=== PATIENT | male | born 1935 | race Caucasian/White ===

== ENCOUNTER 2019-07-04 00:29 | Inpatient (IN) | payer OTHER ==
[~2019-07-04] VITALS: Ht 182.9 cm; Wt 78.9 kg
[2019-07-04] VITALS (14 sets, daily range): BP systolic 82–154
--- NOTE | 2019-07-04 00:29 | NUR ---
Pt arrives per BLS from home with c/o SOB, cough and congestion progressively worsening over the past 2 days. Non-productive coughing with audible congestion and rhonchi, pallor noted to skin. Per EMS, pt's friend called 911. Pt arrives with SPO2 88-91% RA. Pt has indwelling F/C in place. Dr. Alvarez and RT notified of pt status.
[2019-07-04] MEDS ORDERED: IPRATROPIUM/ALBUTEROL SULFATE 3 ML AMPUL.NEB (DUONEB) INH ONE (00:35)
--- NOTE | 2019-07-04 00:35 | NUR ---
Cici urbina in [facility] - 07/04/19 at 0106 by SDEDAJ RT at bedside.
--- NOTE | 2019-07-04 00:42 | NUR ---
X-ray at bedside.
--- NOTE | 2019-07-04 01:02 | NUR ---
Pt coughing, tachypeic, RR 26, SPO2 83% RA. DuoNeb initiated at this time per RT.
--- NOTE | 2019-07-04 01:10 | NUR ---
# 18 gauge angiocath placed to RFA. Use of asceptic technique. Opsite placed over site. Blood return noted. Blood specimens to include Blood Cx X 2 and Lactic Acid along with MRSA and Influenza collected and sent to lab. Flushed with 10 cc of normal saline. No evidence of infiltration noted. Patient tolerated well.
--- NOTE | 2019-07-04 01:12 | NUR ---
Nasotracheal suction provided by RT, thick white sputum to suction cannister. Improvement to rhonchi and respirations noted post suctioning. Pt tolerated fair.
--- NOTE | 2019-07-04 01:40 | NUR ---
Pt continues to have non-productive cough with RR 26, SPO2 83% on O2 at 2 LPM/NC. Dr. Alvarez called to bedside.
--- NOTE | 2019-07-04 01:45 | NUR ---
Dr. Alvarez at bedside.
[2019-07-04 01:53] LABS: BASOPHILS % (AUTO) 0.3 % (0.0-2.0); EOSINOPHILS % (AUTO) 0.5 % (0.0-4.0); HEMATOCRIT 34.7 % (36-54); HEMOGLOBIN 11.9 g/dL (14.0-18.0); LYMPHOCYTES # (AUTO) 0.9 K/uL (1.0-5.5); LYMPHOCYTES % (AUTO) 10.9 % (20.5-51.5); MEAN CORPUSCULAR HEMOGLOBIN 34 pg (27-31); MEAN CORPUSCULAR HGB CONC 34 % (32-36); MEAN CORPUSCULAR VOLUME 98 fL (79.0-98.0); MONOCYTES # (AUTO) 0.4 K/uL (0.0-1.0); MONOCYTES % (AUTO) 5.6 % (1.7-9.3); NEUTROPHILS # (AUTO) 6.6 K/uL (1.8-7.7); NEUTROPHILS % (AUTO) 82.7 % (40.0-70.0); PLATELET COUNT (AUTO) 215 K/uL (130-430); RED BLOOD CELL COUNT(AUTO) 3.55 MIL/uL (4.2-6.2); RED CELL DISTRIBUTION WIDTH 13.3 % (9.0-15.0)
--- NOTE | 2019-07-04 01:57 | NUR ---
Pt to receive BiPAP. RT notified. Pt moved to ER bed 06, placed on surveillance system monitor with O2 at 2 LPM/NC.
[2019-07-04] MEDS ORDERED: AZITHROMYCIN 500 MG in NS 250 ML IV ONE (02:00)
[2019-07-04] MEDS ORDERED: VANCOMYCIN HCL 1,000 MG in NS 250 ML IV ONE (02:00)
[2019-07-04] MEDS ORDERED: cefTRIAXone 1 GM IVPB PREMIX 50 ML IV ONE (02:00)
[2019-07-04 02:09] LABS: ANION GAP 6 (5-15); CALCIUM 9.1 mg/dL (8.4-11.0); CHLORIDE 103 mmol/L (98-107); GLUCOSE 131 mg/dL (70-99); POTASSIUM 3.6 mmol/L (3.5-5.1); SODIUM SERUM 137 mmol/L (136-145); UREA NITROGEN, BLOOD 27 mg/dL (8-21)
--- NOTE | 2019-07-04 02:09 | NUR ---
Patient was moved to 6.
[2019-07-04 02:14] LABS: ALANINE AMINOTRANSFERASE 27 U/L (12-78); ALBUMIN 3.6 g/dL (3.4-4.8); ASPARTATE AMINOTRANSFERASE 20 U/L (10-37); TOTAL BILIRUBIN 0.4 mg/dL (0.0-1.0)
[2019-07-04] MEDS ORDERED: VANCOMYCIN HCL 1000 MG/VIAL IV ONE (02:24)
[2019-07-04] MEDS ORDERED: AZITHROMYCIN 500 MG/VIAL (ZITHROMAX) IV ONE (02:31)
--- NOTE | 2019-07-04 02:31 | NUR ---
RT at bedside. BiPAP placed and in progress with settings: IPAP 12, EPAP 5, Rate 12, FiO2 40%.
--- NOTE | 2019-07-04 02:32 | NUR ---
unable to obtain medication list. Per caregiver, she will be able to bring medications tomorrow morning.
--- NOTE | 2019-07-04 02:58 | NUR ---
Pt vomited in BiPAP mask while at bedside. BiPAP immediately disconnected from face mask and mask removed. Airway remains patent, pt able to talk in complete sentences, yet pressured speech. No gurgling or coughing noted. Dr. Alvarez and RT notified.
--- NOTE | 2019-07-04 03:00 | NUR ---
Pt experiences another vomiting episode. Pt given Zofran 4 mg IVP per verbal order.
--- NOTE | 2019-07-04 03:03 | NUR ---
Pt tachypneic, RR 30, accessory muscle use with grunting. SPO2 82% RA. RT at bedside. Pt placed on O2 at 6 LPM/NC, SPO2 improves to 87%. Dr. Alvarez made aware.
--- NOTE | 2019-07-04 03:14 | NUR ---
Pt moved to ER bed 01, to quality assurance monitor body. Pt remains alert and responsive, HR 118, B/P 116/64, R 26, SPO2 88% on 6 LPM/NC. RT x 2 and mechanical ventilator setup at bedside. Pt to be intubated.
[2019-07-04] MEDS ORDERED: ONDANSETRON HCL 4 MG/2 ML VIAL ONE (03:16)
--- NOTE | 2019-07-04 03:37 | NUR ---
Pt AAOX3, improvement noted to respirations and coughing. No further vomiting. SPO2 94% on O2 at 6 LPM/NC. Intubation to be held at this time. RT at bedside to perform ABG.
[2019-07-04] MEDS ORDERED: PROPOFOL DRIP 0 ML IV ONE (03:39)
--- NOTE | 2019-07-04 03:54 | NUR ---
Pt with productive cough with thick yellow/white sputum. SPO2 94% on 6 LPM/NC. Pt denies c/o pain or discomfort and no needs verbalized at this time.
--- NOTE | 2019-07-04 04:26 | NUR ---
Pt continues to cough up thick yellow-white sputum, respirations even and non-labored, SPO2 93% on O2 at 6 LPM/NC. Denies c/o pain or discomfort, no needs verbalized.
--- NOTE | 2019-07-04 05:00 | NUR ---
# 16 FR Ozuna catheter with use of sterile technique. Immediate return of 25 cc yellow urine noted. Bedside drainage bag placed below level of bladder. Urine sample collected and sent to lab. Pt tolerated procedure fair. Patient arrived with ozuna in place, changed due to standard of practice prior to admission. 400 mL horacio urine emptied from previous F/C bag. Patient unable to toilet self.
--- NOTE | 2019-07-04 05:24 | NUR ---
Called Dr. Gatica for upgrade to ICU. Dr. Gatica Approved.
--- NOTE | 2019-07-04 05:33 | NUR ---
Note ciara in EDM - 07/04/19 at 0704 by FABRICE Patient will be admitted to care of Angelo Escobar. Admitted to ICU unit. Will go to room 7. Belongings list completed. Complete and up to date summary report printed. SBAR report to be given at bedside with opportunity for questions.
--- NOTE | 2019-07-04 05:33 | NUR ---
Pt to be ER ICU Hold per warehouse team leader.
[2019-07-04] MEDS ORDERED: ACETAMINOPHEN 500 MG TABLET PO ONE (06:15)
[2019-07-04] MEDS ORDERED: ACETAMINOPHEN 500 MG TABLET ONE (06:18)
[2019-07-04] MEDS ORDERED: ACETAMINOPHEN 650 MG/20.3 ML UDC PO ONE (06:45)
--- NOTE | 2019-07-04 06:45 | NUR ---
Pt unable to tolerate PO intake. Dr. Alvarez notified. Tylenol PO not to be given.
[2019-07-04] MEDS ORDERED: ACETAMINOPHEN 650 MG/20.3 ML UDC ONE (06:51)
[2019-07-04] MEDS ORDERED: ACETAMINOPHEN 650 MG SUPP.RECT RC ONE (07:00)
--- NOTE | 2019-07-04 07:10 | NUR ---
Pt report given to NAJMA Phillips.
--- NOTE | 2019-07-04 07:10 | NUR ---
REPORT RECEIVED FROM LENA
--- NOTE | 2019-07-04 08:06 | NUR ---
Currently waiting for an ICU bed. Bed will not be available until 1200.
[2019-07-04] MEDS ORDERED: DILT240C91 PO (08:21)
--- NOTE | 2019-07-04 08:35 | NUR ---
Spoke w/ the pt's son Markel. Limited hx obtained and home med information obtained.
[2019-07-04 08:55] LABS: BILIRUBIN,URINE NEGATIVE (NEGATIVE); BLOOD, URINE 3+ (NEGATIVE); CLARITY/URINE SL CLOUDY (CLEAR); COLOR,URINE YELLOW (YELLOW); GLUCOSE,URINE NEGATIVE (NEGATIVE); KETONES,URINE TRACE (NEGATIVE); LEUKOCYTE ESTERASE ,URINE 1+ (NEGATIVE); NITRITE, URINE NEGATIVE (NEGATIVE); PH,URINE 5.5 (5.0-8.0); PROTEIN URINE 2+ (NEGATIVE); UROBILINOGEN,URINE 0.2 (0.2-1.0)
[2019-07-04 09:07] LABS: BACTERIA,URINE MODERATE /HPF (None Seen); WBC,URINE 50-80 /HPF (0-3)
--- NOTE | 2019-07-04 09:12 | NUR ---
PT TEMPERATURE LOWERED TO 98.4 AFTER ICE PACKS GIVEN
--- NOTE | 2019-07-04 11:44 | NUR ---
Report given to [facility] ICU nurse. Pt will be going to ICU 7.
--- NOTE | 2019-07-04 12:00 | NUR ---
Patient will be admitted to care of Dr. Gatica. Admitted to ICU unit. Will go to room 7. Belongings list completed. Complete and up to date summary report printed. SBAR report to be given at bedside with opportunity for questions. IV patent and infusing well .
--- NOTE | 2019-07-04 15:54 | NUR ---
MD CONSULT DR. Deb ELLIOTT RE: PNEUMONIA. SPOKE TO SAKSHI (EXCHANGE) DR. HENNING RE: PNEUMONIA. SPOKE TO JANEEN (EXCHANGE)
[2019-07-04] MEDS ORDERED: FINA1TAB PO (15:56)
[2019-07-04] MEDS ORDERED: TAMS-11 PO (15:56)
[2019-07-04] MEDS ORDERED: HYDROcodone/ACETAMIN 5-325 MG TAB (NORCO/ VICODIN) PO PRN (17:45)
[2019-07-04] MEDS ORDERED: ONDANSETRON HCL 4 MG/2 ML VIAL IVP PRN (17:45)
[2019-07-04] MEDS ORDERED: LORazepam 2 MG/ML VIAL IVP PRN (17:45)
[2019-07-04] MEDS ORDERED: ACETAMINOPHEN 325 MG TABLET PO PRN (17:45)
[2019-07-04] MEDS ORDERED: HYDROcodone/ACETAMIN 10-325 MG TAB PO PRN (17:45)
--- NOTE | 2019-07-04 18:00 | NUR ---
DR. Gatica was here and Dr. Guerra were here. Update given. vss. urine output adequate. Pt. is now on 2L/NC. O2 sat 96%. Coughing productively.
--- NOTE | 2019-07-04 19:10 | NUR ---
OPENING NOTE SBAR REPORT RECEIVED FROM ABBY YAO. CARE ASSUMED. PT ANO X 4 LAYING IN BED ON 2L NC. PT LUNG SOUNDS ARE CLEAR. PT SINUS RHYTHM ON MONITOR. PT HAS 18G IV TO RIGHT AND LEFT FOREARMS SALINE LOCKED. PEDAL AND RADIAL PULSES NORMAL. NO EDEMA NOTED. PT ON REGULAR DIET. ABDOMEN SOFT NON DISTENDED. BOWEL SOUNDS ACTIVE IN ALL FOUR QUADRANTS. CAZARES CATHETER IN PLACE. URINE YELLOW AND CLEAR. BED LOCKED IN LOWEST POSITION. SAFETY PRECAUTIONS IN PLACE. CALL LIGHT WITHIN REACH. WILL CONTINUE TO MONITOR.
[2019-07-04] MEDS: ALBUTEROL SULFATE 0.083% 2.5 MG/3 ML VIAL.NEB INH SCH ×2 (19:32→23:24)
[2019-07-04] MEDS: IPRATROPIUM BROM 0.5 MG/2.5 ML VIAL.NEB (ATROVENT) INH SCH ×2 (19:32→23:23)
[2019-07-04] MEDS: TAMSULOSIN HCL 0.4 MG CAP PO SCH (21:01)
[2019-07-04] MEDS: NORMAL SALINE 5 ML DISP.SYRIN IVF SCH (21:02)
--- NOTE | 2019-07-04 21:31 | NUR ---
Angelo STUBBS DR.. [phone] SPOKE WITH JUDD
[2019-07-04] MEDS ORDERED: NORMAL SALINE 5 ML DISP.SYRIN IVF SCH (22:00)
--- NOTE | 2019-07-04 23:10 | NUR ---
TRANSFER NOTE PT TRANSFERRED TO TELE BED 102-B. SBAR REPORT GIVEN TO ALBERTO YAO. NO SIGNS OR SYMPTOMS OF DISTRESS NOTED. CARE ENDORSED.
--- NOTE | 2019-07-04 23:10 | NUR ---
TRANSFERRED FROM ICU PATIENT IS STABLE AND WAS TRANSFERRED FROM ICU. REPORT WAS GIVEN BY DAVID YAO.
--- NOTE | 2019-07-04 23:15 | NUR ---
INITIAL NOTES PATIENT IS STABLE AND IN BED. NO S/S OF RESPIRATORY DISTRESS NOTED. PATIENT SUCCESSFULLY DEMONSTRATES USAGE OF CALL LIGHT AT THIS TIME. PATIENT VERBALIZES NO PAIN. FALL, SAFETY, ASPIRATION, AND RESPIRATORY PRECAUTIONS WILL BE IN PLACE THROUGHOUT THE SHIFT. BED IS LOCKED, ALARMED, AND AT THE LOWEST POSITION. WILL CONTINUE TO MONITOR.
--- NOTE | 2019-07-05 00:42 | NUR ---
ROUNDING PATIENT IS SLEEPING IN BED AND STABLE. NO S/S OF RESPIRATORY DISTRESS NOTED. CALL LIGHT IN REACH. BED IS LOCKED, ALARMED, AND AT THE LOWEST POSITION. WILL CONTINUE TO MONITOR.
[2019-07-05] MEDS: IPRATROPIUM BROM 0.5 MG/2.5 ML VIAL.NEB (ATROVENT) INH SCH ×6 (03:00→23:00)
[2019-07-05] MEDS: ALBUTEROL SULFATE 0.083% 2.5 MG/3 ML VIAL.NEB INH SCH ×6 (03:00→23:00)
--- NOTE | 2019-07-05 04:00 | NUR ---
DR. ELLIOTT ROUNDS DR. ELLIOTT IS BY BEDSIDE.
[2019-07-05] MEDS: NORMAL SALINE 5 ML DISP.SYRIN IVF SCH ×3 (05:30→21:04)
[2019-07-05] MEDS: cefTRIAXone 1 GM IVPB PREMIX 50 ML IV SCH (05:35)
--- NOTE | 2019-07-05 05:47 | NUR ---
NEW IV PLACED ON LEFT FOREARM NEW IV PLACED ON THE LEFT FOREARM 22G. IV IS PATENT AND DRAWS BLOOD. PATIENT TOLERATED WELL. LEFT IV IS LEAKING WHEN NS IS PUSHED. DESPITE EDUCATIONAL EFFORTS PATIENTS REFUSED TO TAKE OUT LEFT IV. WILL CONTINUE TO EDUCATE. PATIENT ALSO REFUSED CHANGE OF LINENS AT THIS TIME DESPITE EDUCATIONAL EFFORTS. WILL CONTINUE TO EDUCATE. OTHERWISE, PATIENT IS STABLE. NO S/S OF RESPIRATORY DISTRESS NOTED. CALL LIGHT IN REACH. BED IS LOCKED, ALARMED, AND AT THE LOWEST POSITION. WILL CONTINUE TO MONITOR.
[2019-07-05] MEDS: AZITHROMYCIN 500 MG in NS 250 ML IV SCH (06:27)
--- NOTE | 2019-07-05 06:30 | NUR ---
CLOSING NOTES PATIENT IS LAYING IN BED AND STABLE. NO S/S OF RESPIRATORY DISTRESS NOTED. CALL LIGHT IN REACH. BED IS LOCKED, ALARMED, AND AT THE LOWEST POSITION. LINENS WERE ALSO CHANGED AT THIS TIME. PATIENT STILL REFUSED TO TAKE OUT RIGHT IV, WILL CONTINUE TO EDUCATE TILL THE END OF SHIFT. FALL, SAFETY, ASPIRATION, AND RESPIRATORY PRECAUTIONS HAS BEEN PLACE THROUGHOUT THE SHIFT. WILL CONTINUE TO MONITOR UNTIL REPORT IS GIVEN TO AM NURSE BY BEDSIDE.
[2019-07-05 07:49] LABS: BASOPHILS % (AUTO) 0.2 % (0.0-2.0); EOSINOPHILS # (AUTO) 0.1 K/uL (0.0-0.4); EOSINOPHILS % (AUTO) 0.6 % (0.0-4.0); HEMATOCRIT 28.3 % (36-54); HEMOGLOBIN 9.5 g/dL (14.0-18.0); LYMPHOCYTES # (AUTO) 1.1 K/uL (1.0-5.5); LYMPHOCYTES % (AUTO) 7.7 % (20.5-51.5); MEAN CORPUSCULAR HEMOGLOBIN 33 pg (27-31); MEAN CORPUSCULAR HGB CONC 33 % (32-36); MEAN CORPUSCULAR VOLUME 99 fL (79.0-98.0); MONOCYTES # (AUTO) 0.7 K/uL (0.0-1.0); MONOCYTES % (AUTO) 4.9 % (1.7-9.3); NEUTROPHILS # (AUTO) 12.3 K/uL (1.8-7.7); NEUTROPHILS % (AUTO) 86.6 % (40.0-70.0); PLATELET COUNT (AUTO) 142 K/uL (130-430); RED BLOOD CELL COUNT(AUTO) 2.86 MIL/uL (4.2-6.2); RED CELL DISTRIBUTION WIDTH 13.3 % (9.0-15.0)
[2019-07-05 07:59] LABS: ALANINE AMINOTRANSFERASE 17 U/L (12-78); ALBUMIN 2.5 g/dL (3.4-4.8); ANION GAP 3 (5-15); ASPARTATE AMINOTRANSFERASE 19 U/L (10-37); CALCIUM 8.7 mg/dL (8.4-11.0); CHLORIDE 102 mmol/L (98-107); CREATININE 0.96 mg/dL (0.55-1.30); GLUCOSE 96 mg/dL (70-99); POTASSIUM 3.7 mmol/L (3.5-5.1); SODIUM SERUM 131 mmol/L (136-145); TOTAL BILIRUBIN 0.7 mg/dL (0.0-1.0); UREA NITROGEN, BLOOD 29 mg/dL (8-21)
[2019-07-05 08:00] VITALS: BP_SYST 97
--- NOTE | 2019-07-05 08:00 | NUR ---
ASSUMPTION OF CARE: RECEIVED PT A/A/OX4, DX: INADEQUATE VENTILATION, R/T PNU, SEPSIS, AFEBRILE, HAS LOW BP=97/57, ASYMPTOMATIC, REFUSES MORNING MEDS AT THIS TIME, STATES "I JUST WANT TO BE LEFT ALONE", BREATH SOUNDS ARE CLEAR, DIMINISHED, BREATHING UNLABORED, O2 SAT=89-90% ON 2L VIA NC, NO DISTRESS NOTED, IV SITE INTACT, PATENT, NO REDNESS OR SWELLING, ORIENTED TO CALL LIGHT, PLACED WITHIN REACH, WILL CONT' TO MONITOR AND ASSESS.
[2019-07-05 08:09] LABS: WHITE BLOOD COUNT (AUTO) 14.2 K/uL (4.8-10.8)
[2019-07-05 08:40] LABS: C-REACTIVE PROTEIN QUANT 14.6 mg/dL (0-0.5)
[2019-07-05] MEDS: FINASTERIDE 5 MG TABLET (PROSCAR) PO SCH (09:00)
[2019-07-05] MEDS: TAMSULOSIN HCL 0.4 MG CAP PO SCH ×2 (09:00→21:03)
[2019-07-05] MEDS: DILTIAZEM HCL 240 MG CAP.SR.24H PO SCH (09:00)
--- NOTE | 2019-07-05 09:00 | NUR ---
REFUSAL OF MEDS: PT DECLINED TO TAKE MEDICATION THIS AM, STATES "I JUST WANT YOU TO LEAVE ME ALONE, I HAVEN'T BEEN ABLE TO GET ANY REST FOR THIS STAFF COMING IN AND OUT BOTHERING ME", WILL REASSESS, AND TRY AGAIN LATER.
[2019-07-05 09:19] LABS: ERYTHROCYTE SEDIMENTATION RATE 42 MM/HR (0-15)
--- NOTE | 2019-07-05 10:56 | NUR ---
Nutrition Update Stepan Scale 14 noted. Pt admitted for sepsis, pneumonia. Diet: regular (07/04/19) & 2 gm Na (07/05/19) -- 2 active, separate diet orders BMI: 23.6 kg/m2 RD to follow per nutrition care standards.
[2019-07-05 11:14] VITALS: BP_SYST 109
--- NOTE | 2019-07-05 12:00 | NUR ---
NURSES NOTES: PT ASLEEP, NO DISTRESS NOTED, CALL LIGHT PLACED WITHIN REACH, WILL CONT' WITH POC.
--- NOTE | 2019-07-05 12:01 | NUR ---
SS NOTES: CARPET SEWER was referred by CM to see patient for DCP. Demographic information confirmed and updated (NOK: Yasemin Zazueta, dtr, and [phone]). CARPET SEWER met with patient at bedside. Pt was alert and oriented and uncooperative (on some inquiries). Pt appeared to be well-groomed, irritable in mood with average eye contact and normal speech. Pt is an 84 y/o male who came in via ED for shortness of breath. Pt lives with son (currently out of town, will be back on 07/06) in a one sadaf home with 3 steps to get to/from front door. Pt is dependent on his ADL's (caregiver providing food and stays with him at night) and uses a walker to go around the community. Pt states he has only seen his PCP one time and does not know the name of him. Pt does not have an advanced directive. Pt states if SNF is indicated, he wants to use [facility] and no preference on [facility]. Pt refuses to answer additional questions. SS will remain available when needed.
--- NOTE | 2019-07-05 15:30 | NUR ---
VISIT: AT BEDSIDE FOR ASSESSMENT OF PT, DISCUSSED POC, PT VERBALIZES UNDERSTANDING, WILL CONT' TO MONITOR AND ASSESS.
[2019-07-05 15:39] VITALS: BP_SYST 110
[2019-07-05 20:38] VITALS: BP_SYST 118
[2019-07-05] MEDS: NACL 0.9% 1,000 ML IV SCH (21:04)
--- NOTE | 2019-07-05 22:15 | NUR ---
CAZARES CATHETER for URINE patent free flow of yellow clear urine noted to BSDB patent has History of BPH .
[2019-07-05 23:16] VITALS: BP_SYST 133
--- NOTE | 2019-07-06 00:03 | NUR ---
Hourly Rounding patient awake alert HOB elevated on Room air 02 SAT 95 % position change tolerated .
--- NOTE | 2019-07-06 01:33 | NUR ---
Patient awake alert verbally Responsive assist for position change chest movement symmetrical no SOB noted call aguila given to patient .
[2019-07-06] MEDS: IPRATROPIUM BROM 0.5 MG/2.5 ML VIAL.NEB (ATROVENT) INH SCH ×5 (03:00→20:16)
[2019-07-06] MEDS: ALBUTEROL SULFATE 0.083% 2.5 MG/3 ML VIAL.NEB INH SCH ×5 (03:00→20:16)
[2019-07-06] MEDS: cefTRIAXone 1 GM IVPB PREMIX 50 ML IV SCH (05:39)
[2019-07-06] MEDS: NACL 0.9% 1,000 ML IV SCH ×2 (05:40→20:51)
[2019-07-06] MEDS: NORMAL SALINE 5 ML DISP.SYRIN IVF SCH ×3 (05:40→22:00)
[2019-07-06] MEDS: AZITHROMYCIN 500 MG in NS 250 ML IV SCH (05:41)
[2019-07-06 07:53] LABS: ANION GAP 6 (5-15); CALCIUM 8.4 mg/dL (8.4-11.0); CHLORIDE 101 mmol/L (98-107); CREATININE 0.82 mg/dL (0.55-1.30); GLUCOSE 93 mg/dL (70-99); POTASSIUM 3.8 mmol/L (3.5-5.1); SODIUM SERUM 133 mmol/L (136-145); UREA NITROGEN, BLOOD 18 mg/dL (8-21)
[2019-07-06 07:55] LABS: BASOPHILS % (AUTO) 0.1 % (0.0-2.0); EOSINOPHILS # (AUTO) 0.1 K/uL (0.0-0.4); EOSINOPHILS % (AUTO) 1.4 % (0.0-4.0); HEMATOCRIT 27.4 % (36-54); HEMOGLOBIN 9.7 g/dL (14.0-18.0); LYMPHOCYTES % (AUTO) 10.2 % (20.5-51.5); MEAN CORPUSCULAR HEMOGLOBIN 34 pg (27-31); MEAN CORPUSCULAR HGB CONC 35 % (32-36); MEAN CORPUSCULAR VOLUME 96 fL (79.0-98.0); MONOCYTES # (AUTO) 0.5 K/uL (0.0-1.0); MONOCYTES % (AUTO) 5.6 % (1.7-9.3); NEUTROPHILS % (AUTO) 82.7 % (40.0-70.0); PLATELET COUNT (AUTO) 155 K/uL (130-430); RED BLOOD CELL COUNT(AUTO) 2.84 MIL/uL (4.2-6.2); RED CELL DISTRIBUTION WIDTH 13.2 % (9.0-15.0)
--- NOTE | 2019-07-06 08:00 | NUR ---
ASSUMPTION OF CARE: RECEIVED PT A/A/OX4, DX: INADEQUATE VENTILATION, R/T PNU, SEPSIS, AFEBRILE, BREATH SOUNDS ARE CLEAR, BREATHING UNLABORED, O2 SAT=97% ON 2L VIA NC, NO DISTRESS NOTED, IV SITE INTACT, PATENT, NO REDNESS OR SWELLING, ORIENTED TO CALL LIGHT, PLACED WITHIN REACH, WILL CONT' TO MONITOR AND ASSESS.
[2019-07-06 08:19] LABS: WHITE BLOOD COUNT (AUTO) 9.6 K/uL (4.8-10.8)
[2019-07-06 08:30] VITALS: BP_SYST 135
[2019-07-06 08:57] LABS: ERYTHROCYTE SEDIMENTATION RATE 67 MM/HR (0-15)
[2019-07-06] MEDS: DILTIAZEM HCL 240 MG CAP.SR.24H PO SCH (08:59)
[2019-07-06] MEDS: TAMSULOSIN HCL 0.4 MG CAP PO SCH ×2 (08:59→21:15)
[2019-07-06] MEDS: FINASTERIDE 5 MG TABLET (PROSCAR) PO SCH (08:59)
--- NOTE | 2019-07-06 09:00 | NUR ---
SHIP LINER: MORNING MEDS GIVEN, PER ORDERED BY Jennifer, TOLERATED WELL, NEEDS MET , CALL LIGHT PLACED WITHIN REACH, WILL CONT' TO MONITOR AND ASSESS.
[2019-07-06 11:18] VITALS: BP_SYST 134
--- NOTE | 2019-07-06 12:00 | NUR ---
NURSES NOTES: PT ASLEEP, NO DISTRESS NOTED, CALL LIGHT PLACED WITHIN REACH, WILL CONT' WITH POC.
--- NOTE | 2019-07-06 14:31 | NUR ---
Dietitian Recommendations * Recommend continuing 2 gm Na diet * D/C regular diet LP, RD Please refer to Nutrition Assessment for details. Addendum: 07/06/19 at [address] Amended: Links added.
--- NOTE | 2019-07-06 15:35 | NUR ---
Case mgt: S/W son Markel Zazueta at [phone] to discuss dc planning. I explained pt may require SNF for PT and/or IV abx--Markel is agreeable to this but his first choice of SNF is [facility]--Per Deepika patient case coordinator Tasha ([phone]), [facility] a contracted [facility] and she will make that her first choice once we fax her dc plan order. Other contracted facilities are: [facility], [facility], [facility], [facility], [facility]--Urine cx are pending (collected 07/05/19 in afternoon). Markel Zazueta made aware of IM Medicare notice and right to appeal discharge once we have dc order and he can inquire with nursing station about it when he comes to see pt. SUZANNE YAO
--- NOTE | 2019-07-06 17:30 | NUR ---
VISIT: AT BEDSIDE FOR ASSESSMENT OF PT, NEW ORDERS GIVEN, WILL CONT' TO MONITOR AND ASSESS.
--- NOTE | 2019-07-06 19:30 | NUR ---
Opening notes Received report. Patient is resting in bed, no signs of distress noted. Breathing even and unlabored. IV patent and intact, infusing fluids. Patient still eating dinner. No other needs. Call light with the patient. Safety precautions in place.
[2019-07-06 21:25] VITALS: BP_SYST 137
--- NOTE | 2019-07-06 21:30 | NUR ---
Medications given. Educated the action and side effects of medications. Patient verbalized understanding and tolerated well. No needs at this time. Call light with the patient. Safety precautions in place.
--- NOTE | 2019-07-06 23:35 | NUR ---
Resting Patient resting in bed. No signs of distress noted. Breathing even and unlabored. IVF infusing well. Call light with the patient. Safety precautions in place.
[2019-07-07 00:56] VITALS: BP_SYST 131
--- NOTE | 2019-07-07 02:00 | NUR ---
Sleeping No signs of distress noted. Breathing even and unlabored. IVF infusing well. Call light with the patient. Safety precautions in place.
--- NOTE | 2019-07-07 04:41 | NUR ---
Sleeping Patient in and out of sleep. No signs of distress noted. Breathing even and unlabored. IVF infusing well. Call light with the patient. Safety precautions in place.
[2019-07-07] MEDS: NORMAL SALINE 5 ML DISP.SYRIN IVF SCH ×3 (05:28→22:00)
[2019-07-07] MEDS: cefTRIAXone 1 GM IVPB PREMIX 50 ML IV SCH (05:28)
[2019-07-07] MEDS: AZITHROMYCIN 500 MG in NS 250 ML IV SCH (06:45)
--- NOTE | 2019-07-07 06:50 | NUR ---
Closing notes Patient resting comfortably in bed. No signs of distress noted. Breathing even and unlabored on 2 L NC . IV patent and intact, no signs of infiltration noted infusing fluids. All needs met throughout the shift. Call light with the patient. Safety precautions in place. will endorse care to day shift RN.
[2019-07-07] MEDS: IPRATROPIUM BROM 0.5 MG/2.5 ML VIAL.NEB (ATROVENT) INH SCH ×4 (07:00→19:38)
[2019-07-07] MEDS: ALBUTEROL SULFATE 0.083% 2.5 MG/3 ML VIAL.NEB INH SCH ×5 (07:00→23:00)
--- NOTE | 2019-07-07 07:28 | NUR ---
OPENING NOTE Patient resting in the bed with eyes closed. No acute distress. Skin warm and dry to touch. IV intact to LFA and SL to RFA, no redness, no swelling, patent. On NS at 50ml/hr, infusing well. Safety measure maintained. Call light within reached. Bed locked in low position, side rails up, macie alarm on. Will continue to monitor.
[2019-07-07 07:33] LABS: BASOPHILS % (AUTO) 0.3 % (0.0-2.0); EOSINOPHILS # (AUTO) 0.1 K/uL (0.0-0.4); EOSINOPHILS % (AUTO) 1.7 % (0.0-4.0); HEMATOCRIT 28.2 % (36-54); HEMOGLOBIN 9.7 g/dL (14.0-18.0); LYMPHOCYTES # (AUTO) 0.9 K/uL (1.0-5.5); LYMPHOCYTES % (AUTO) 14.8 % (20.5-51.5); MEAN CORPUSCULAR HEMOGLOBIN 34 pg (27-31); MEAN CORPUSCULAR HGB CONC 34 % (32-36); MONOCYTES # (AUTO) 0.5 K/uL (0.0-1.0); MONOCYTES % (AUTO) 7.3 % (1.7-9.3); NEUTROPHILS # (AUTO) 4.7 K/uL (1.8-7.7); NEUTROPHILS % (AUTO) 75.9 % (40.0-70.0); PLATELET COUNT (AUTO) 165 K/uL (130-430); RED BLOOD CELL COUNT(AUTO) 2.89 MIL/uL (4.2-6.2); RED CELL DISTRIBUTION WIDTH 13.1 % (9.0-15.0)
[2019-07-07 07:44] LABS: MEAN CORPUSCULAR VOLUME 98 fL (79.0-98.0); WHITE BLOOD COUNT (AUTO) 6.2 K/uL (4.8-10.8)
[2019-07-07] MEDS: NACL 0.9% 1,000 ML IV SCH ×2 (07:45→20:27)
[2019-07-07 07:50] VITALS: BP_SYST 115
[2019-07-07 08:03] LABS: ANION GAP 4 (5-15); C-REACTIVE PROTEIN QUANT 5.9 mg/dL (0-0.5); CALCIUM 8.5 mg/dL (8.4-11.0); CHLORIDE 101 mmol/L (98-107); CREATININE 0.66 mg/dL (0.55-1.30); GLUCOSE 94 mg/dL (70-99); POTASSIUM 3.5 mmol/L (3.5-5.1); SODIUM SERUM 131 mmol/L (136-145); UREA NITROGEN, BLOOD 11 mg/dL (8-21)
[2019-07-07] MEDS: FINASTERIDE 5 MG TABLET (PROSCAR) PO SCH (09:12)
[2019-07-07] MEDS: DILTIAZEM HCL 240 MG CAP.SR.24H PO SCH (09:12)
[2019-07-07] MEDS: TAMSULOSIN HCL 0.4 MG CAP PO SCH ×2 (09:12→20:25)
--- NOTE | 2019-07-07 09:21 | NUR ---
AM SCHEDULE MED GIVEN, TOLERATED WELL.
[2019-07-07 10:07] LABS: ERYTHROCYTE SEDIMENTATION RATE 67 MM/HR (0-15)
--- NOTE | 2019-07-07 11:05 | NUR ---
Discharge Planning: DCP faxed Deepika (f [phone] P [phone]) pt referral for SNF, DCP to follow up.
--- NOTE | 2019-07-07 11:10 | NUR ---
ROUND Patient resting in the bed. No acute distress. Continue on O2 via NC. F/C intact, drain gravity. Safety measure maintained. Bed locked in low position, side rails up, bed alarm on. Continue to monitor.
[2019-07-07 12:29] VITALS: BP_SYST 118
--- NOTE | 2019-07-07 13:25 | NUR ---
ROUND Patient resting in the bed. No acute distress. Continue on O2 via NC. IV intact, IVF infusing well. F/C intact, drain gravity. Safety measure maintained. Bed locked in low position, side rails up, bed alarm on. Continue to monitor.
--- NOTE | 2019-07-07 13:42 | NUR ---
DC Planning: Per Tasha/Deepika: the pt is accepted at [facility]: pending room assignment and UA culture result. Please fax the result to her once available. She arranged transportation with [facility] ambulance on will call. #[phone]. Addendum: 07/07/19 at 1602 by Tremaine Engle RN >> Per NAJMA Morgan: UA c/s is still pending with possible getting result tomorrow.
--- NOTE | 2019-07-07 15:14 | NUR ---
PATIENT RECEIVING BREATHING TREATMENT AT THIS TIME.
--- NOTE | 2019-07-07 15:54 | NUR ---
FOLLOW UP THE RESULT OF URINE C & S Per lab Thor, the result of urine C & S still pending, the urine specimen sent out will depend how busy they are, hopeful will back tomorrow. Will continue to follow up.
--- NOTE | 2019-07-07 17:13 | NUR ---
ROUND Patient resting in the bed. No acute distress. Continue on O2 via NC. IV intact, IVF infusing well. F/C intact, drain gravity. Safety measure maintained. Bed locked in low position, side rails up, bed alarm on. Call light within reached. Continue to monitor.
[2019-07-07 17:17] VITALS: BP_SYST 125
--- NOTE | 2019-07-07 18:21 | NUR ---
DR. GONSALES, PAULIE Seen and examined by Dr. Gonsales. Informed to Dr. Gonsales, patient accepted by [facility] but bed is not available until urine C & S result back and faxed to them. Dr. Gonsales said that possible tomorrow.
--- NOTE | 2019-07-07 18:34 | NUR ---
URINE C & S UA C & S result back at this time, shown to Dr. Gatica and stated that will order something to the patient.
--- NOTE | 2019-07-07 18:55 | NUR ---
CLOSING NOTE Patient resting in the bed. No acute distress. Skin warm and dry to touch. IV intact to LFA, no redness, no swelling, no drainage. On NS at 50ml/hr, infusing well. All needs met. Safety measure maintained. Call light within reached. Bed locked in low position, side rails up, bed alarm on. Will endorse to night nurse.
--- NOTE | 2019-07-07 19:30 | NUR ---
OPENING NOTE Received patient resting in the bed. No acute distress observed. IV site patent, IVF running, dressings c/d/i. Call light within reach, Bed alarm on, bed at lowest position. will continue to monitor. Addendum: 07/08/19 at 0542 by Ehsan Garcia RN Early catheter in place, draining by gravity, no kinks or loops noted.
[2019-07-07 20:00] VITALS: BP_SYST 114
--- NOTE | 2019-07-07 21:30 | NUR ---
Patient is upset, not wanting to be disturbed at all. Educated patient on need of taking vitals signs and breathing treatments. Provided patient medications, patient tolerated well. Patient does not want to have vital signs checked for the midnight vitals. Will continue to monitor.
--- NOTE | 2019-07-07 23:10 | NUR ---
Patient is awake, eyes open, no signs of acute respiratory distress observed. Patient does not need anything at this time. Will continue to monitor.
[2019-07-08] MEDS: IPRATROPIUM BROM 0.5 MG/2.5 ML VIAL.NEB (ATROVENT) INH SCH ×3 (00:14→11:18)
--- NOTE | 2019-07-08 00:58 | NUR ---
Provided patient with a red jello. Will continue to monitor.
--- NOTE | 2019-07-08 04:35 | NUR ---
Patient is resting, no signs of acute respiratory distress observed. will continue to monitor.
[2019-07-08] MEDS: NORMAL SALINE 5 ML DISP.SYRIN IVF SCH (05:12)
[2019-07-08] MEDS: cefTRIAXone 1 GM IVPB PREMIX 50 ML IV SCH (05:12)
[2019-07-08] MEDS: AZITHROMYCIN 500 MG in NS 250 ML IV SCH (06:26)
--- NOTE | 2019-07-08 06:49 | NUR ---
CLOSING NOTES Patient is resting. No signs of respiratory distress observed, 2L NC. IV site intact, patent, dressings c/d/i, IV antibiotics currently running. HOB elevated. Call light within reach, bed alarm on, bed at lowest position. All needs met throughout shift. will endorse care to oncoming shift. Addendum: 07/08/19 at 0653 by Ehsan Garcia RN Early catheter draining by gravity, no kinks, no loops noted. Not touching the floor.
--- NOTE | 2019-07-08 07:35 | NUR ---
OPENING NOTE Patient resting in the bed. No acute distress. On O2 2L/min vis NC.S kin warm and dry to touch. IV intact to LFA, no redness, no swelling, no drainage. On NS at 50ml/hr, infusing well. Discussed the safety issue, use call light when needs help, and plan of care, verbally understanding. F/C intact, drainage gravity. Safety measure maintained. Call light within reached. Bed locked in low position, side rails up, bed alarm on. Will continue to monitor.
[2019-07-08 07:55] VITALS: BP_SYST 128
[2019-07-08] MEDS: ALBUTEROL SULFATE 0.083% 2.5 MG/3 ML VIAL.NEB INH SCH ×2 (08:10→11:18)
[2019-07-08] MEDS: TAMSULOSIN HCL 0.4 MG CAP PO SCH (10:15)
[2019-07-08] MEDS: DILTIAZEM HCL 240 MG CAP.SR.24H PO SCH (10:16)
[2019-07-08] MEDS: FINASTERIDE 5 MG TABLET (PROSCAR) PO SCH (10:16)
--- NOTE | 2019-07-08 10:55 | NUR ---
SEEN AND EXAMINED BY ELAN CERDA WITH THE ORDER OF LEVAQUIN 250MG PO DAILY X 4 DAYS AND D/C THE PERVIOUS ORDER FROM DR. GONSALES.
--- NOTE | 2019-07-08 11:03 | NUR ---
CALLED PAUL[facility] EXCHANGE REGARDING THE DISCHARGE ORDER AND MED, LEFT MESSAGE TO RGGIE AND WAITED TO CALL BACK.
--- NOTE | 2019-07-08 11:10 | NUR ---
RECEIVED THE CALL BACK FROM DR. GONSALES Reported to Dr. Gonsales, Dr. Nieves seen the patient and review the urine C & S result with the order to D/C the pervious order of antibiotic, and prescribed Levaquin 250mg PO daily x [address] Gonsales agreed that.
--- NOTE | 2019-07-08 11:24 | NUR ---
DC Planning: Per Tasha/Deepika: given room 102 B at [facility]. Tasha is arranging an ambulance draft roller picker for 1300 pm. ROSSANA Ballesteros made aware.
[2019-07-08] MEDS ORDERED: LEVO750T45 PO (11:27)
--- NOTE | 2019-07-08 12:35 | NUR ---
REPORT GIVEN Called [facility], report given to NAJMA Kruger. Patient will go to room 141 A.
[2019-07-08 12:36] VITALS: BP_SYST 124
--- NOTE | 2019-07-08 14:05 | NUR ---
PT TRANSFERRED Report given to Saskia at 1235. Transfer packet with Transfer Orders and Medication Reconciliation form given to EMT with report. Exitcare provided. [facility] ID band removed, replaced with ID band with pt's name and . IV catheter removed, intact and dressing applied, no active bleeding. F/C intact, no leakage. All belongings sent with patient. Patient left floor via gurney escorted by EMT in no distress.
--- NOTE | 2019-07-08 14:14 | NUR ---
PHYSICAL THERAPY CO-SIGN The Physical Therapy Progress Notes documented by Wafer Substrate Tester have been reviewed. Reviewed/Co-Signed by: Ernesto Dawson PT Documentation Done by: OLAMIDE BRADLEY PTA Addendum: 07/08/19 at 1417 by Ernesto Dawson PT Amended: Links added.
== END 2019-07-08 14:05 | DRG 871 ==
LOC: SED 00:29 → STU 05:13 → SIC 12:14 → STU 23:10 → SMU 07-06 23:18
PROVIDERS: ADMIT Preventive Medicine Preventive Medicine/Occupational Environmental Medicine; ATTEND Preventive Medicine Preventive Medicine/Occupational Environmental Medicine
PROC: 5A09357 Assistance with Respiratory Ventilation, Less than 24 Consecutive Hours, Continuous Positive Airway Pressure (ICD-10-PCS; principal; 2019-07-04)
DX: A41.9 Sepsis, unspecified organism (principal); J69.0 Pneumonitis due to inhalation of food and vomit; J96.01 Acute respiratory failure with hypoxia; E43 Unspecified severe protein-calorie malnutrition; N39.0 Urinary tract infection, site not specified; E87.1 Hypo-osmolality and hyponatremia; D64.9 Anemia, unspecified; I10 Essential (primary) hypertension; R73.9 Hyperglycemia, unspecified; B95.2 Enterococcus as the cause of diseases classified elsewhere; N40.0 Benign prostatic hyperplasia without lower urinary tract symptoms; T17.928A Food in respiratory tract, part unspecified causing other injury, initial encounter; X58.XXXA Exposure to other specified factors, initial encounter; Y93.89 Activity, other specified; Y92.89 Other specified places as the place of occurrence of the external cause; Y99.8 Other external cause status; Z87.891 Personal history of nicotine dependence; Z68.23 Body mass index [BMI] 23.0-23.9, adult
CPT/HCPCS: 36415; 36600; 71045; 80048; 80053; 81000-TC; 82803-TC; 82962; 83605; 85025; 85651-TC; 86140; 86710; 87040-TC; 87081; 87086; 87186-TC; 93005; 94640; 94760; 96365; 96367; 96368; 97110-GP; 97116-GP; 97530-GP; 99285; G0378; J0456; J0696; J2405; J2704; J3370; J7030; J7050; J7613; J7620

== ENCOUNTER 2019-07-11 19:17 | Emergency (ER) | payer OTHER ==
[~2019-07-11] VITALS: Ht 182.9 cm; Wt 79.4 kg
[~2019-07-11 19:17] MED LIST: DILT240C91 PO; FINA1TAB PO; LEVO750T45 PO; TAMS-11 PO
[2019-07-11 20:12] VITALS: BP_SYST 142
--- NOTE | 2019-07-11 20:12 | NUR ---
Patient to ER bed 2 to gown for evaluation. Side rails up.
--- NOTE | 2019-07-11 20:15 | NUR ---
Pt brought in by BLS ambulance. Pt awake, alert, oriented x4. Pt states that he was brought from [facility] today. Pt States that he has had coughing fit after meals and PO meds, and urine retention with bloody urine output into ozuna catheter. Pt states he was hospitalized for aspiration pna at [facility] approx 4 days ago. Pt denies pain, nausea, vomiting, diarrhea, chest pain, shortness of breath at this time. Pt denies any other medical complaint at this time. Pt resting in ED bed comfortably, No acute distress. VSS
--- NOTE | 2019-07-11 20:26 | NUR ---
Spoke with Daughter in Law Suad Zazueta . She gave reports correlating with nursing staff reports from [place]. States that patient currently has follow up appointment with for a bladder scope on 07/14/2019 for BPH associated complications and hx of urinary retention
--- NOTE | 2019-07-11 20:40 | NUR ---
ER at bedside examining patient.
[2019-07-11] MEDS ORDERED: NACL 0.9% 1,000 ML IV ONE (21:04)
[2019-07-11 21:33] LABS: BASOPHILS % (AUTO) 0.7 % (0.0-2.0); EOSINOPHILS # (AUTO) 0.1 K/uL (0.0-0.4); EOSINOPHILS % (AUTO) 1.7 % (0.0-4.0); HEMATOCRIT 30.7 % (36-54); HEMOGLOBIN 10.4 g/dL (14.0-18.0); LYMPHOCYTES % (AUTO) 19.3 % (20.5-51.5); MEAN CORPUSCULAR HEMOGLOBIN 33 pg (27-31); MEAN CORPUSCULAR HGB CONC 34 % (32-36); MEAN CORPUSCULAR VOLUME 97 fL (79.0-98.0); MONOCYTES # (AUTO) 0.6 K/uL (0.0-1.0); MONOCYTES % (AUTO) 11.9 % (1.7-9.3); NEUTROPHILS # (AUTO) 3.5 K/uL (1.8-7.7); NEUTROPHILS % (AUTO) 66.4 % (40.0-70.0); PLATELET COUNT (AUTO) 235 K/uL (130-430); RED BLOOD CELL COUNT(AUTO) 3.17 MIL/uL (4.2-6.2); RED CELL DISTRIBUTION WIDTH 13.1 % (9.0-15.0); WHITE BLOOD COUNT (AUTO) 5.2 K/uL (4.8-10.8)
--- NOTE | 2019-07-11 21:50 | NUR ---
Bedside Bladder scan performed. Amount noted to be 800-1100cc in bladder.
[2019-07-11 22:07] LABS: ANION GAP 5 (5-15); CALCIUM 8.5 mg/dL (8.4-11.0); CHLORIDE 101 mmol/L (98-107); CREATININE 0.92 mg/dL (0.55-1.30); GLUCOSE 91 mg/dL (70-99); POTASSIUM 3.7 mmol/L (3.5-5.1); SODIUM SERUM 134 mmol/L (136-145); UREA NITROGEN, BLOOD 16 mg/dL (8-21)
[2019-07-11 22:12] LABS: PROTHROMBIN TIME 10.3 SECS (9.5-12.5)
[2019-07-11 22:20] LABS: ALANINE AMINOTRANSFERASE 17 U/L (12-78); ALBUMIN 2.9 g/dL (3.4-4.8); ASPARTATE AMINOTRANSFERASE 10 U/L (10-37); TOTAL BILIRUBIN 0.4 mg/dL (0.0-1.0)
[2019-07-11] MEDS ORDERED: LIDOCAINE VISCOUS 2%, 15 ML UDC MM ONE (22:30)
[2019-07-11] MEDS ORDERED: LIDOCAINE VISCOUS 2%, 15 ML UDC ONE (22:34)
--- NOTE | 2019-07-11 23:00 | NUR ---
# 16 FR Ozuna catheter with use of sterile technique. Immediate return of 1600 cc Brown and Red urine noted. Bedside drainage bag placed below level of bladder. Urine sample collected and sent to lab. Pt tolerated procedure Well. Patient arrived with ozuna in place, changed due to Obstruction and retention of urine in the bladder causing discomfort.
[2019-07-11 23:22] LABS: BILIRUBIN,URINE 1+ (NEGATIVE); BLOOD, URINE 3+ (NEGATIVE); COLOR,URINE YELLOW (YELLOW); GLUCOSE,URINE NEGATIVE (NEGATIVE); KETONES,URINE NEGATIVE (NEGATIVE); LEUKOCYTE ESTERASE ,URINE NEGATIVE (NEGATIVE); NITRITE, URINE NEGATIVE (NEGATIVE); PROTEIN URINE 2+ (NEGATIVE); UROBILINOGEN,URINE 0.2 (0.2-1.0)
--- NOTE | 2019-07-11 23:30 | NUR ---
Pt resting in Ed bed comfortably. Pt tolerating IV fluids well.
[2019-07-11 23:45] LABS: BACTERIA,URINE FEW /HPF (None Seen); RBC,URINE >100 /HPF (0-3)
[2019-07-11 23:47] LABS: CLARITY/URINE CLOUDY (CLEAR)
--- NOTE | 2019-07-11 23:50 | NUR ---
Pt indicated mild excoriation on sacral area. Pt backside/sacreal area cleaned and optifoam applied to protect skin.
--- NOTE | 2019-07-12 00:20 | NUR ---
Pt resting in ED bed comfortably. No acute distress.
[2019-07-12 01:06] VITALS: BP_SYST 146
--- NOTE | 2019-07-12 01:06 | NUR ---
Patient given written and verbal discharge instructions and verbalizes understanding. ER MD discussed with patient the results and treatment provided. Patient in stable condition. ID arm band removed. IV catheter removed intact and dressing applied, no active bleeding.No Prescriptions given. Patient educated on pain management and to follow up with PMD. Pain Scale 0/10. Opportunity for questions provided and answered. Medication side effect fact sheet provided.
== END 2019-07-12 01:06 | disposition home or self-care (01) ==
LOC: SED 19:17
DX: T83.098A Other mechanical complication of other urinary catheter, initial encounter (principal); R32 Unspecified urinary incontinence; D64.9 Anemia, unspecified; R33.9 Retention of urine, unspecified; Z79.899 Other long term (current) drug therapy
CPT/HCPCS: 36415; 51702; 71045; 80053; 81000; 83605; 83880; 84484; 85025; 85610; 85730; 87040; 87086; 93005; 99284; J2001; J7030